=== PATIENT | female | born 1980 | race Caucasian/White ===

== ENCOUNTER 2019-12-12 09:09 | Emergency (ER) | payer BC ==
[~2019-12-12] VITALS: Ht 182.8 cm; Wt 74.8 kg
[2019-12-12 09:52] LABS: BASOPHILS % (AUTO) 0 % (0-10); EOSINOPHILS % (AUTO) 0 % (0-10); HEMATOCRIT 40 % (35-52); HEMOGLOBIN 14.1 g/dL (11.5-16.0); LYMPHOCYTES % (AUTO) 25 % (12-44); MEAN CORPUSCULAR HEMOGLOBIN 31 pg (25-34); MEAN CORPUSCULAR HGB CONC 35 g/dL (32-36); MEAN CORPUSCULAR VOLUME 89 fL (80-99); MEAN PLATELET VOLUME 10.1 fL (9.0-12.2); MONOCYTES # (AUTO) 0.3 10^3/uL (0.0-1.0); MONOCYTES % (AUTO) 8 % (0-12); NEUTROPHILS # (AUTO) 2.7 10^3/uL (1.8-7.8); NEUTROPHILS % (AUTO) 67 % (42-75); PLATELET COUNT 162 10^3/uL (130-400); WHITE BLOOD COUNT 4.1 10^3/uL (4.3-11.0)
[2019-12-12] MEDS ORDERED: LACTATED RINGERS 1,000 ML IV ONE (09:55)
[2019-12-12] MEDS ORDERED: ONDANSETRON 4 MG/2 ML (SDV) Z0FRAN ONE (09:55)
[2019-12-12 10:02] LABS: ALBUMIN 4.2 GM/DL (3.2-4.5)
[2019-12-12 10:03] LABS: CHLORIDE 104 MMOL/L (98-107); POTASSIUM 3.8 MMOL/L (3.6-5.0); SODIUM 137 MMOL/L (135-145)
[2019-12-12 10:04] LABS: CALCIUM 9.1 MG/DL (8.5-10.1)
[2019-12-12 10:05] LABS: GLUCOSE 101 MG/DL (70-105); TOTAL PROTEIN 7.1 GM/DL (6.4-8.2)
[2019-12-12 10:06] LABS: CARBON DIOXIDE 22 MMOL/L (21-32)
[2019-12-12 10:07] LABS: BILIRUBIN,TOTAL 1.7 MG/DL (0.1-1.0)
[2019-12-12 10:08] LABS: ALKALINE PHOSPHATASE 54 U/L (40-136)
[2019-12-12 10:09] LABS: CREATININE SERUM 0.66 MG/DL (0.60-1.30); GFR ESTIMATED > 60
[2019-12-12 10:10] LABS: BUN/CREATININE RATIO 9
[2019-12-12 10:12] LABS: ALANINE AMINOTRANSFERASE 16 U/L (0-55); MAGNESIUM 1.9 MG/DL (1.6-2.4)
[2019-12-12 10:29] LABS: BILIRUBIN,URINE NEGATIVE (NEGATIVE); CLARITY,URINE CLEAR; COLOR,URINE YELLOW; GLUCOSE, URINE (UA) NEGATIVE (NEGATIVE); KETONES,URINE TRACE (NEGATIVE); LEUKOCYTE ESTERASE ,URINE 1+ (NEGATIVE); NITRITE,URINE NEGATIVE (NEGATIVE); PROTEIN,URINE NEGATIVE (NEGATIVE)
[2019-12-12 10:37] LABS: BACTERIA,URINE NEGATIVE /HPF; SQUAMOUS EPITHELIAL CELL,UR RARE /HPF
[2019-12-12 11:07] LABS: TSH (THYROID ANALYZER) 0.93 UIU/ML (0.35-4.94)
--- NOTE | 2019-12-12 11:25 | ED General ---
General Chief Complaint: General Problems/Pain Stated Complaint: ANXIETY Nursing Triage Note: Pt reports COVID symptoms about 14 days ago. Pt feels those symptoms have resolved, but pt c/o severe anxiety and reports insomnia and anxiety. Pt reports racing heart and nausea. Pt reports losing taste and smell three days ago. Pt reports seeing in [place] yesterday and was prescribed hydroxyzine and clorazapate that are not providing relief. Nursing Sepsis Screen: No Definite Risk Source of Information: Patient Exam Limitations: No Limitations History of Present Illness Date Seen by Provider: Dec 12, 2019 Time Seen by Provider: 09:25 Initial Comments Viri Love is a 39-year-old woman who presents to the emergency room with a primary complaints of insomnia, anxiety, nausea, and vomiting. Symptoms started about 2 weeks ago with myalgia, fever, and congestion. After about a week those symptoms subsided, but the other symptoms remain. She has had some extreme anxiety although she does not appear anxious at this moment. She was seen at an urgent care facility in [place] yesterday and prescribed Lexapro, clorazepate, and hydroxyzine. She has taken all of these medications and still had significant difficulty with anxiety and insomnia. She has been taking Zofran for the nausea and vomiting. Loss of taste and smell were a later onset of symptoms and still persist to a lesser degree. She denies any chest pain, short ness of breath, or cough. She has not had fever for several days. She elects to not be tested for Covid as most of the Covid symptoms have resolved and she is on day 14 of symptoms. She notes having had minor symptoms of anxiety and depression previously during the period. She previously took Lexapro for depression with good results. She has had a few psychosocial stressors with rastafarian but otherwise has a stable home life without any new significant stressors. Allergies and Home Medications Allergies Coded Allergies: No Known Drug Allergies (Unverified , 12/12/19) Patient Home Medication List Home Medication List Reviewed: Yes Review of Systems Review of Systems Constitutional: see HPI EENTM: nose congestion (Resolved) Respiratory: no symptoms reported Cardiovascular: palpitations Gastrointestinal: see HPI Genitourinary: no symptoms reported : No Musculoskeletal: see HPI Skin: no symptoms reported Psychiatric/Neurological: See HPI Hematologic/Lymphatic: No Symptoms Reported Immunological/Allergic: no symptoms reported Past Yutjkhe-Ouywit-Fekbqe Hx Past Med/Social Hx: Reviewed Nursing Past Med/Soc Hx Patient Social History Alcohol Use: Denies Use Recreational Drug Use: No 2nd Hand Smoke Exposure: No Recent Foreign Travel: No Contact w/Someone Who Travel: No Recent Infectious Disease Expo: No Recent Hopitalizations: No Physical Abuse: No Sexual Abuse: No Mistreated: No Fear: No Seasonal Allergies Seasonal Allergies: No Past Medical History Surgeries: Yes (R knee) Orthopedic, Tonsillectomy Respiratory: No Cardiac: No Neurological: No Genitourinary: No Gastrointestinal: No Musculoskeletal: No Endocrine: No HEENT: No Cancer: No Psychosocial: Yes ( depression) Integumentary: No Blood Disorders: No Physical Exam Vital Signs Vital Signs - First Documented 12/12/19 09:44 Temp 36.7 Pulse 86 Resp 20 B/P (MAP) 112/78 (89) Pulse Ox 95 O2 Delivery Room Air Capillary Refill : Less Than 3 Seconds Height, Weight, BMI Height: '" Weight: lbs. oz. kg; 22.00 BMI Method: General Appearance: No Apparent Distress, WD/WN HEENT: PERRL/EOMI, Normal ENT Inspection, Other (Oropharynx dry) Neck: Normal Inspection Respiratory: Lungs Clear, Normal Breath Sounds, No Accessory Muscle Use, No Respiratory Distress Cardiovascular: Regular Rate, Rhythm, No Edema, No Murmur Gastrointestinal: Normal Bowel Sounds, Non Tender, Soft Extremity: Normal Inspection, Non Tender, No Pedal Edema Neurologic/Psychiatric: Alert, Oriented x3, No Motor/Sensory Deficits, Normal Mood/Affect, outpatient services director II-XII Norm as Tested Skin: Normal Color, Warm/Dry Progress/Results/Core Measures Suspected Sepsis Recent Fever Within 48 Hours: Yes Infection Criteria Present: None New/Unexplained Altered Menta: No Sepsis Screen: No Definite Risk SIRS Temperature: Pulse: 86 Respiratory Rate: 20 Blood Pressure 112 /78 Mean: 89 Results/Orders Lab Results Micro Results My Orders Medications Given in ED Vital Signs/I&O Capillary Refill : Less Than 3 Seconds Blood Pressure Mean: 89 Progress Note : Progress Note Patient received a liter of IV fluid. Work-up was unremarkable. Patient seems to be most anxious about having insomnia and fear that her anxiety will not improve with medications. She seems to be stuck in a cycle of anxiety about having anxiety. I have encouraged her to follow the recommendations and the discharge instructions. Departure Impression Primary Impression: Insomnia Qualified Codes: G47.00 - Insomnia, unspecified Additional Impression: Anxiety Disposition: 01 HOME, SELF-CARE Condition: Stable Departure-Patient Inst. Decision time for Depature: 12:02 Referrals: NO,LOCAL PHYSICIAN (PCP/Family) Primary Care Physician Patient Instructions: Anxiety, Adult (DC), Insomnia (DC) Add. Discharge Instructions: Since you had symptoms suspicious for COVID, remain in quarantine through the end of today which would be your . Be active today, especially outside in the sunlight if possible. If you are feeling anxious in your bedtime, take clorazepate about 30 minutes before bed. Take another one if you are unable to go to sleep within 30 to 60 minutes or if you wake up in the night. Continue taking Lexapro as prescribed. Follow-up with your primary care provider next week. Consider establishing with a counselor to learn how to stop the cycle of having anxiety about anxiety. Call Dr. Giron or return to care if you have worsening symptoms that are not treatable with the tools you have available. All discharge instructions reviewed with patient and/or family. Voiced understanding. ROMAN GIRON MD Dec 12, 2019 11:24
[2019-12-12 12:19] VITALS: BP 112/78
== END 2019-12-12 12:19 | disposition home or self-care (01) ==
LOC: ER 09:13
DX: G47.00 Insomnia, unspecified (principal); F41.9 Anxiety disorder, unspecified
CPT/HCPCS: 36415; 80053; 81000; 82550; 83615; 83735; 84145; 84443; 84703; 85025; 86141; 87804